=== PATIENT | female | born 1980 | race African-American/Black ===

== ENCOUNTER 2023-04-14 08:00 | Outpatient (CLI) | payer MEDICAID ==
[2023-04-14 23:03] LABS: CHLAMYDIA TRACHOMATIS DNA NEGATIVE (NEGATIVE); NEISSERIA GONORRHOEAE DNA NEGATIVE (NEGATIVE)
[2023-04-14 23:09] LABS: BACTERIAL VAGINOSIS DNA POSITIVE (NEGATIVE); CANDIDA GLABRATA DNA NEGATIVE (NEGATIVE); CANDIDA GROUP DNA NEGATIVE (NEGATIVE); CANDIDA KRUSEI DNA NEGATIVE (NEGATIVE); TRICHOMONAS VAGINALIS DNA POSITIVE (NEGATIVE)
== END 2023-04-14 23:59 | disposition home or self-care (01) ==
LOC: LAB.WC 08:00
PROVIDERS: ATTEND Nurse Practitioner
DX: Z11.3 Encounter for screening for infections with a predominantly sexual mode of transmission (principal); L29.8 Other pruritus
CPT/HCPCS: 81514; 87491; 87591; 87661

== ENCOUNTER 2023-11-02 05:56 | Emergency (ER) | payer MEDICAID ==
--- NOTE | 2023-11-02 07:15 | ED Physician Documentation ---
PD HPI DYSPNEA - Stated complaint Stated Complaint: SOA/WHEEZING - Chief complaint Chief Complaint: Resp - History obtained from History obtained from: Patient - Additional information Additional information: 43-year-old woman with history of asthma, tobacco abuse. She has had increased work of breathing for the last 2 days associated with cough with white foamy mucus and a lot of chest and back pain. No fevers. Thinks the weather change was the trigger. No pedal edema or calf pain. PD PAST MEDICAL HISTORY - Past Medical History Past Medical History: Yes Respiratory: Asthma Endocrine/Autoimmune: HyPERthyroidism - Past Surgical History Past Surgical History: No - Present Medications Home Medications: Ambulatory Orders Medication Instructions Recorded Confirmed Albuterol Sulf [Ventolin Hfa 1 - 2 puffs INH Q4HR PRN 11/02/23 11/02/23 Inhaler] Albuterol Sulf [Ventolin Hfa 1 - 2 puffs INH Q4HR PRN #1 each 11/02/23 Inhaler] Doxycycline [Vibramycin] 100 mg PO BID #14 tablet 11/02/23 predniSONE [Deltasone] 20 mg PO [id number] #21 tab 11/02/23 - Allergies Allergies/Adverse Reactions: Allergies Allergy/AdvReac Type Severity Reaction Status Date / Time Penicillins AdvReac Edema Verified 11/02/23 06:08 - Social History Does the pt smoke?: Yes Smoking Status: Current every day smoker - POLST Patient has POLST: No PD ED PE NORMAL - Vitals Vital signs reviewed: Yes - General General: Alert and oriented X 3, Other (She appears modestly ill with increased work of breathing and speaking in short sentences.) - Cardiac Cardiac: RRR, No murmur - Respiratory Respiratory: Other (Quite diminished throughout with tachypnea) - Abdomen Abdomen: Non tender - Extremities Extremities: No edema, No calf tenderness / cord - Neuro Neuro: Alert and oriented X 3 Eye Opening: Spontaneous Motor: Obeys Commands Verbal: Oriented GCS Score: 15 - Psych Psych: Normal mood, Normal affect Results - Vitals Vitals: Vital Signs - 24 hr 11/02/23 11/02/23 11/02/23 06:10 06:30 06:35 Temperature 36.6 C Heart Rate 99 Respiratory 22 Rate Blood Pressure 128/96 H O2 Saturation 94 88 L 95 If not protocol 2 : Oxygen Flow, liters/minute 11/02/23 11/02/23 11/02/23 07:32 08:40 09:02 Temperature 36.4 C L Heart Rate 104 H 100 118 H Respiratory 21 18 14 Rate Blood Pressure 112/87 H O2 Saturation 91 L If not protocol : Oxygen Flow, liters/minute Oxygen O2 Source Room air Oxygen Flow Rate 2 - EKG (time done) 0723 EKG releavant findings:: EKG personally interpreted by author of this note. Relevant findings are: Rate: Rate (enter#) (95) Rhythm: NSR, ARINA Riple[place]: Normal Intervals: Prolonged [place] Ischemia: Normal ST segments, Non specific changes - Labs Labs: Laboratory Tests 11/02/23 11/02/23 11/02/23 06:31 07:20 07:20 WBC 8.0 RBC 5.04 Hgb 13.7 Hct 42.2 MCV 83.7 MCH 27.2 MCHC 32.5 RDW 13.7 Plt Count 239 MPV 11.3 H Neut # (Auto) 5.0 Lymph # (Auto) 1.7 [place] # (Auto) 0.8 Eos # (Auto) 0.4 Baso # (Auto) 0.0 Absolute Nucleated RBC 0.00 Nucleated RBC % 0.0 Sodium 141 Potassium 3.7 Chloride 107 Carbon Dioxide 26 Anion Gap 8.0 BUN 8 Creatinine 0.6 Estimated GFR (MDRD) 132 Glucose 111 H Calcium 10.0 Total Bilirubin 0.5 AST 14 ALT 15 Alkaline Phosphatase 120 Total Protein 7.5 Albumin 4.7 Globulin 2.8 Albumin/Globulin Ratio 1.7 Urine Color YELLOW Urine Clarity CLEAR Urine pH 6.0 Ur Specific [place] 1.025 Urine Protein NEGATIVE Urine Glucose (UA) NEGATIVE Urine Ketones NEGATIVE Urine Occult Blood SMALL H Urine Nitrite NEGATIVE Urine Bilirubin NEGATIVE Urine Urobilinogen 0.2 (NORMAL) Ur Leukocyte Esterase NEGATIVE Urine RBC 0-5 Urine WBC 0-3 Ur Squamous Epith Cells RARE Squamous Urine Bacteria Rare Urine Mucus Few Strands Ur Microscopic Review INDICATED Urine Culture Comments NOT INDICATED Urine HCG, Qual NEGATIVE - Rads (name of study) CT PA chest was negative for PE or airspace disease. She did have lymphadenopathy and enlarged thyroid. Relevant Findings:: Final report received, EMP independent interpretation of test PD Medical Decision Making - ED course ED course: She presents with an apparent asthma exacerbation, that said she has chest and back pain out of proportion and quite diminished lungs. She is on supplemental oxygen on my examination seen shortly after shift change.DuoNeb, dexamethasone, Toradol, Dilaudid were ordered as well as CT of the chest and routine labs. On recheck at 8:15 AM she is feeling much better with regard to her symptoms. Her breathing is better, she is still wheezy so a second neb was ordered. In the interim, workup has demonstrated normal CBC, CMP, and unremarkable urinalysis and tests. CTPA chest showed no airspace disease or PE but the incidental findings were discussed with her with follow-up recommended. She was feeling much better now. Departure - Departure Disposition: Home, Self Care Clinical Impression: Enlarged thyroid gland, Mediastinal adenopathy Asthma Qualifiers: Asthma severity: moderate Asthma persistence: persistent Asthma complication type: with acute exacerbation Qualified Code(s): J45.41 - Moderate persistent asthma with (acute) exacerbation Chest pain Qualifiers: Chest pain type: unspecified Qualified Code(s): R07.9 - Chest pain, unspecified Condition: Good Record reviewed to determine appropriate education?: Yes Instructions: Asthma Dc Prescriptions: Albuterol Sulf [Ventolin Hfa Inhaler] 1 - 2 puffs INH Q4HR PRN #1 each PRN Reason: Shortness Of Air/Wheezing predniSONE [Deltasone] 20 mg PO [id number] #21 tab Doxycycline [Vibramycin] 100 mg PO BID #14 tablet Comments: [facility] [place]. You did have swollen lymph nodes in your chest and an enlarged thyroid. These both need workup with your primary care physician. Specifically probably should have an ultrasound and labs regarding your thyroid and repeat CT of your chest to make sure that the lymph nodes are gone after the course of antibiotics. Call your doctor to arrange a follow-up appointment, make the next available appointment. In the interim, return anytime if worse or if new symptoms develop. Forms: PCP List, Activity restrictions
[2023-11-02] MEDS: KETOROLAC 15 MG/ML VIAL IVP STA (07:30)
[2023-11-02] MEDS: DEXAMETHASONE 10 MG/ML VIAL IVP STA (07:30)
[2023-11-02] MEDS: HYDROmorphone 1 MG/ML CARPUJECT IVP STA (07:31)
[2023-11-02] MEDS: IPRATROPIUM/ALBUTEROL 3 ML NEB INH STA (07:31)
[2023-11-02 07:47] LABS: ALBUMIN 4.7 g/dL (3.2-5.5); ALBUMIN/GLOBULIN RATIO 1.7 (1.0-2.2); BILIRUBIN,TOTAL 0.5 mg/dL (0.2-1.0); CREATININE 0.6 mg/dL (0.6-1.3); POTASSIUM 3.7 mmol/L (3.5-4.5); TOTAL PROTEIN 7.5 g/dL (6.4-8.9)
[2023-11-02] MEDS ORDERED: iohexoL-300 100 ML VIAL ONE (07:49)
[2023-11-02 07:52] LABS: BASOPHILS % (AUTO) 0.4 %; EOSINOPHILS # (AUTO) 0.4 10^3/uL (0.0-0.7); EOSINOPHILS % (AUTO) 4.4 %; HCT - HEMATOCRIT 42.2 % (37.0-47.0); HGB - HEMOGLOBIN 13.7 g/dL (12.0-16.0); LYMPHOCYTES # (AUTO) 1.7 10^3/uL (1.5-3.5); LYMPHOCYTES % (AUTO) 21.7 %; MEAN CORPUSCULAR HEMOGLOBIN 27.2 pg (27.0-31.0); MEAN CORPUSCULAR HGB CONC 32.5 g/dL (32.0-36.0); MEAN CORPUSCULAR VOLUME 83.7 fL (81.0-99.0); MEAN PLATELET VOLUME 11.3 fL (7.9-10.8); MONOCYTES # (AUTO) 0.8 10^3/uL (0.0-1.0); MONOCYTES % (AUTO) 10.5 %; NEUTROPHILS % (AUTO) 62.9 %; PLT - PLATELET COUNT 239 10^3/uL (130-450); RED BLOOD COUNT 5.04 10^6/uL (4.20-5.40); RED CELL DISTRIBUTION WIDTH 13.7 % (12.0-15.0)
[2023-11-02 08:07] LABS: BILIRUBIN,URINE NEGATIVE (NEGATIVE); GLUCOSE, URINE (UA) NEGATIVE (NEGATIVE); KETONES,URINE (UA) NEGATIVE (NEGATIVE); LEUKOCYTE ESTERASE, URINE NEGATIVE (NEGATIVE); NITRITE,URINE NEGATIVE (NEGATIVE); OCCULT BLOOD,URINE SMALL (NEGATIVE); PROTEIN,URINE NEGATIVE (NEGATIVE); UROBILINOGEN,URINE 0.2 (NORMAL) E.U./dL (NORMAL)
[2023-11-02 08:10] LABS: CLARITY,URINE CLEAR (CLEAR); HCG UR QUAL NEGATIVE
[2023-11-02 08:16] LABS: BACTERIA,URINE Rare /HPF (None Seen); MUCUS,URINE Few Strands; RBC,URINE 0-5 /HPF (0-5); SQUAMOUS EPITHELIAL CELL,UR RARE Squamous (<= Few); WBC,URINE 0-3 /HPF (0-5)
[2023-11-02] MEDS: ALBUTEROL NEB 2.5 MG/3 ML INH STA (08:38)
[2023-11-02] MEDS: iohexoL-300 100 ML VIAL IVP ONE (08:43)
[2023-11-02] MEDS: ONDANSETRON 4 MG/2 ML VIAL IVP STA (08:47)
[2023-11-02 09:08] VITALS: BP 112/87; O2SAT 91
--- NOTE | 2023-11-02 09:08 | CT Report ---
PROCEDURE: Angio Chest INDICATIONS: back/cp, pe protiocol CONTRAST: omni, 80 TECHNIQUE: After the administration of intravenous contrast, 2 mm axial images were acquired from the pulmonary apices to the posterior costophrenic angles during the arterial phase. In addition, 1 mm lung kernel and 5 mm soft tissue kernel reconstructions were performed. 3-dimensional coronal oblique maximum int ensity projection (MIP) reformats, 8 mm axial MIP, and 5 mm coronal and sagittal MPR reformats were t hen performed through the thorax. For radiation dose reduction, the following was used: automated exp osure control, adjustment of mA and/or kV according to patient size. COMPARISON: None. FINDINGS: Image quality: Excellent. Large vessels: No filling defects within the opacified pulmonary arteries, accounting for motion and contrast timing. No evidence of acute aortic syndrome or aortic aneurysm. Lungs and pleura: No consolidation. No pleural effusions. No pneumothorax. No suspicious pulmonary n odules which require follow up. Paraseptal emphysematous changes. Mediastinum: Heart size is normal. No pericardial effusion. No large vessel abnormality. Level 2L and right hilar lymphadenopathy. Chest wall and lower neck: The thyroid is diffusely enlarged without discrete nodule identified. No a xillary or supraclavicular adenopathy by size. Bones: No aggressive osseous abnormality. Upper Abdomen: Unremarkable. IMPRESSION: No pulmonary embolus. Nonspecific mediastinal lymphadenopathy, likely reactive. Diffusely enlarged thyroid. Reviewed by: Kali Phillip MD on 11/02/2023 8:07 AM CRYSTAL Approved by: Kali Phillip MD on 11/02/2023 8:07 AM CRYSTAL Station ID: [id number]
== END 2023-11-02 09:26 | disposition home or self-care (01) ==
LOC: ED 05:56
DX: J45.41 Moderate persistent asthma with (acute) exacerbation (principal); R07.9 Chest pain, unspecified; E04.9 Nontoxic goiter, unspecified; R59.0 Localized enlarged lymph nodes; F17.210 Nicotine dependence, cigarettes, uncomplicated
CPT/HCPCS: 36415; 71275; 80053; 81001; 81025; 85025; 93005; 94640; 94664; 96374; 96375; 99284; J1170; Q9967; 81003; 87086